=== PATIENT | male | born 1940 | race Hispanic/Latino ===

== ENCOUNTER 2024-02-17 02:49 | Emergency (ER) | payer SELFPAY ==
--- NOTE | 2024-02-17 06:04 | EDPHYS ---
Physician Documentation [facility] – [place], [place] Name: Errol Salazar Age: 83 yrs Sex: Male : 1940 Arrival Date: 02/17/2024 Time: 02:49 Bed 19 Private MD: ED Physician Alfredo De La Cruz HPI: 02/16 02:54 This 83 yrs old Male presents to ER via Unassigned with complaints of urinary sp4 retention . 23:43 Very pleasant 83-year-old male presents with urinary retention. Also complains of sp4 constipation.. Historical: - Allergies: 03:06 No Known Allergies; rg5 - PMHx: 03:06 Diabetes mellitus; Hypertensive disorder; prostate cancer; rg5 - Immunization history:: Adult Immunizations up to date. - Infectious Disease History:: Denies. - Social history:: Smoking status: Patient denies any tobacco usage or history of. - Family history:: not pertinent. ROS: 23:43 Constitutional: Negative for fever, chills, and weight loss, positive for urinary sp4 retention positive for constipation 23:43 All other systems are negative, Exam: 23:43 Constitutional: This is a well developed, well nourished patient who is awake, alert, sp4 and in no acute distress. Head/Face: Normocephalic, atraumatic. Eyes: Pupils equal round and reactive to light, extra-ocular motions intact. Lids and lashes normal. Conjunctiva and sclera are not injected. Cornea within normal limits. Periorbital areas with no swelling, redness, or edema. ENT: Nares patent. No nasal discharge, no septal abnormalities noted. Tympanic membranes are normal and external auditory canals are clear. Oropharynx with no redness, swelling, or masses, exudates, or evidence of obstruction, uvula midline. Mucous membranes moist. Neck: Trachea midline, no thyromegaly or masses palpated, and no cervical lymphadenopathy. Supple, full range of motion without nuchal rigidity, or vertebral point tenderness. Chest/axilla: Normal chest wall appearance and motion. Nontender with no deformity. No lesions are appreciated. Cardiovascular: Regular rate and rhythm with a normal S1 and S2. No gallops, murmurs, or rubs. Normal PMI, no JVD. No pulse deficits. Respiratory: Lungs have equal breath sounds bilaterally, clear to auscultation and percussion. No rales, rhonchi or wheezes noted. No increased work of breathing, no retractions or nasal flaring. Abdomen/GI: Soft, with normal bowel sounds. No distension or tympany. No guarding or rebound. Positive for large size midline hernia without signs of incarceration Back: No spinal tenderness. No costovertebral tenderness. Male : Normal genitalia with no discharge or lesions. Skin: Warm, dry with normal turgor. Normal color with no rashes, no lesions, and no evidence of cellulitis. MS/ Extremity: Pulses equal, no cyanosis. Neurovascular intact. Full, normal range of motion. Neuro: Awake and alert, GCS 15, oriented to person, place, time, and situation. Cranial nerves II-XII grossly intact. Motor strength 5/5 in all extremities. Sensory grossly intact. Psych: Awake, alert, with orientation to person, place and time. 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 No sign of fecal sp4 impaction overall normal rectal exam. No mass, Vital Signs: 02:55 BP 177 / 71; Pulse 68; Resp 18; Temp 98.1(O); Pulse Ox 99% on R/A; Weight 87.09 kg; rg5 Height 5 ft. 1 in. ; Pain 9/10; 03:13 BP 177 / 71; Pulse 68; Resp 18; Pulse Ox 99% on R/A; rg5 04:15 BP 125 / 62; Pulse 69; Resp 17; Pulse Ox 99% on R/A; rg5 05:14 BP 133 / 58; Pulse 66; Resp 20; Pulse Ox 95% ; kj2 06:12 BP 140 / 67; Pulse 68; Resp 18; Temp 98; Pulse Ox 100% ; kj2 02:55 Body Mass Index 36.28 (87.09 kg, 154.94 cm) rg5 02:55 Pain Scale: Adult rg5 [place] Coma Score: 23:43 Eye Response: spontaneous(4). Motor Response: obeys commands(6). Verbal Response: sp4 oriented(5). Total: 15. MDM: 03:15 Medical Screening Exam initiated sp4 06:02 ED course: EXAM: CTAbdomen and Pelvis Without Intravenous Contrast CLINICAL HISTORY: sp4 The patient is 83 years old and is Male; CONSTIPATION TECHNIQUE: Axial computed tomography images of the abdomen and pelvis without intravenous contrast. Sagittal and coronal reformatted images were created and reviewed. This CT exam was performed using one or more of the following dose reduction techniques: automated exposure control, adjustment of the mA and/or kV according to patient size, and/or use of iterative reconstruction technique. COMPARISON: No relevant prior studies available. FINDINGS: Artifacts: Mild motion artifact. Lung bases: Unremarkable. No mass. No consolidation. ABDOMEN: Liver: Unremarkable. Gallbladder and bile ducts: Unremarkable. No calcified stones. No ductal dilation. Pancreas: Unremarkable. No ductal dilation. Spleen: Unremarkable. No splenomegaly. Adrenals: Unremarkable. No mass. Kidneys and ureters: Unremarkable. No obstructing stones. No hydronephrosis. Stomach and bowel: Normal amount of retained stool. No bowel dilatation or obstruction. No bowel wall thickening. No findings to suggest colitis. Stomach is unremarkable. Broad ventral abdominal wall hernia containing fat and multiple small bowel loops. No evidence of edema/incarceration. PELVIS: Appendix: The visualized appendix is normal. No pericecal inflammation to suggest acute appendicitis. Bladder: Avitia catheter in the bladder. Pericystic fat stranding raises suspicion for cystitis/UTI. Small bladder calculi. Reproductive: Enlarged prostate gland. ABDOMEN and PELVIS: Intraperitoneal space: Unremarkable. No free air. No significant fluid collection. Bones/joints: Degenerative facet arthropathy in the lower lumbar spine. No acute fracture. Moderate to marked central canal stenosis at L3-4. No dislocation. Soft tissues: See above. Vasculature: Unremarkable. No abdominal aortic aneurysm. Lymph nodes: No pathologically enlarged lymph nodes. IMPRESSION: 1. Mild motion artifact. Normal amount of retained stool. 2. Avitia catheter in the bladder. Pericystic fat stranding raises suspicion for cystitis/UTI. 3. Small bladder calculi. 4. Enlarged prostate gland. 5. Moderate to marked central canal stenosis at L3-4. 6. Additional non-emergent findings as above.. 06:02 Differential diagnosis: nonspecific abdominal pain, urinary retention, Avitia catheter sp4 problem, prostatitis, urethritis. Data reviewed: vital signs, nurses notes, radiologic studies, CT scan. 23:47 Consideration of Admission/Observation Escalation of care including sp4 admission/observation considered. ED course: Avitia catheter was placed by RN. Patient feels much better. Rectal exam does not reveal fecal impaction. Patient stable for discharge home.. 02/16 03:15 Order name: CT Abd/Pelvis - Without Contrast sp4 02/16 03:15 Order name: Avitia; Complete Time: 03:29 sp4 02/16 06:05 Order name: Leg Bag sp4 Administered Medications: No medications were administered Disposition Summary: 02/17/24 06:03 Discharge Ordered Notes: Location: Home sp4 Problem: new sp4 Symptoms: have improved sp4 Condition: Stable sp4 Diagnosis - Acute urinary retention, Acute cystitis sp4 Followup: sp4 - With: Osmani Garcia MD - When: 10 - 14 days - Reason: Recheck today's complaints Discharge Instructions: - Discharge Summary Sheet sp4 - Indwelling Urinary Catheter Care, Adult, [id number] sp4 Forms: - Patient Portal Instructions sp4 Prescriptions: - tamsulosin 0.4 mg Oral capsule - take 1 capsule ORAL route daily for 30 days; 30 capsule; Refills: 0, Product sp4 Selection Permitted - Cephalexin 500 mg Oral Capsule - take 1 capsule ORAL route every 12 hours for 10 days; 20 capsule; Refills: 0, sp4 Product Selection Permitted Signatures: Dispatcher [employer] Alfredo Bowling MD MD sp4 Taj Abbasi RN RN rg5
--- NOTE | 2024-02-17 06:04 | ER ---
Nurse's Notes [facility] [place] Name: Errol Salazar Age: 83 yrs Sex: Male : 1940 Arrival Date: 02/17/2024 Time: 02:49 Bed 19 Private MD: Diagnosis: Acute urinary retention, Acute cystitis Presentation: 02/16 02:55 Chief complaint: EMS states: patient was unable to urinate for 2 hrs now, complains of rg5 pain in the belly. he had a HX of prostate CA \T\ abdominal hernia. 02:55 Coronavirus screen: Client denies travel out of the [place] in the last 14 days. Ebola rg5 Screen: Patient negative for fever greater than or equal to 101.5 degrees Fahrenheit, and additional compatible Ebola Virus Disease symptoms Patient denies exposure to infectious person. Patient denies travel to an Ebola-affected area in the 21 days before illness onset. No symptoms or risks identified at this time. Initial Sepsis Screen: Does the patient meet any 2 criteria? No. Patient's initial sepsis screen is negative. Does the patient have a suspected source of infection? No. Patient's initial sepsis screen is negative. Risk Assessment: Do you want to hurt yourself or someone else? Patient reports no desire to harm self or others. Onset of symptoms was February 17, 2024. 02:55 Method Of Arrival: EMS: [facility] rg5 02:55 Acuity: JOHN 3 rg5 Triage Assessment: 03:06 General: Appears in no apparent distress. Behavior is calm, cooperative. Pain: rg5 Complains of pain in abdomen Pain currently is 9 out of 10 on a pain scale. Quality of pain is described as aching. : Reports inability to void. Historical: - Allergies: 03:06 No Known Allergies; rg5 - PMHx: 03:06 Diabetes mellitus; Hypertensive disorder; prostate cancer; rg5 - Immunization history:: Adult Immunizations up to date. - Infectious Disease History:: Denies. - Social history:: Smoking status: Patient denies any tobacco usage or history of. - Family history:: not pertinent. Screenin:55 [facility] ED Fall Risk Assessment (Adult) History of falling in the last 3 months, rg5 including since admission No falls in past 3 months (0 pts) Confusion or Disorientation No (0 pts) Intoxicated or Sedated No (0 pts) Impaired Gait Yes (1 pt) Mobility Assist Device Used Yes (1 pt) Altered Elimination Yes (1 pt) Score/Fall Risk Level 3 or more points = High Risk Oriented to surroundings, Maintained a safe environment, Used ambulatory aids as needed (educated on \T\ assisted with). 02:55 Abuse screen: Denies threats or abuse. Nutritional screening: No deficits noted. rg5 Tuberculosis screening: No symptoms or risk factors identified. Assessment: 03:15 Reassessment: see triage assessment. rg5 04:16 Reassessment: Patient and/or family updated on plan of care and expected duration. Pain rg5 level reassessed. Patient is alert, oriented x 3, equal unlabored respirations, skin warm/dry/pink. Patient states symptoms have improved. 05:14 Reassessment: Patient appears in no apparent distress at this time. Patient and/or kj2 family updated on plan of care and expected duration. Pain level reassessed. Patient is alert, oriented x 3, equal unlabored respirations, skin warm/dry/pink. 06:12 Reassessment: Patient appears in no apparent distress at this time. Patient and/or kj2 family updated on plan of care and expected duration. Pain level reassessed. Patient is alert, oriented x 3, equal unlabored respirations, skin warm/dry/pink. Vital Signs: 02:55 BP 177 / 71; Pulse 68; Resp 18; Temp 98.1(O); Pulse Ox 99% on R/A; Weight 87.09 kg; rg5 Height 5 ft. 1 in. ; Pain 9/10; 03:13 BP 177 / 71; Pulse 68; Resp 18; Pulse Ox 99% on R/A; rg5 04:15 BP 125 / 62; Pulse 69; Resp 17; Pulse Ox 99% on R/A; rg5 05:14 BP 133 / 58; Pulse 66; Resp 20; Pulse Ox 95% ; kj2 06:12 BP 140 / 67; Pulse 68; Resp 18; Temp 98; Pulse Ox 100% ; kj2 02:55 Body Mass Index 36.28 (87.09 kg, 154.94 cm) rg5 02:55 Pain Scale: Adult rg5 [place] Coma Score: 23:43 Eye Response: spontaneous(4). Motor Response: obeys commands(6). Verbal Response: sp4 oriented(5). Total: 15. ED Course: 02:53 Patient arrived in ED. rv1 02:53 Alfredo De La Cruz MD is Attending Physician. sp4 02:55 Patient has correct armband on for positive identification. Placed in gown. Side rails rg5 up X 1. Door closed. Noise minimized. Warm blanket given. Verbal reassurance given. 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 rg5 03:02 Taj Abbasi, RN is Primary Nurse. rg5 03:06 Triage completed. rg5 03:06 Arm band placed on right wrist. rg5 03:29 Avitia cath inserted, using sterile technique, 16 Fr., by ok, balloon inflated, to rg5 gravity drainage, urine specimen collected. other 750 urine output. 03:49 CT Abd/Pelvis - Without Contrast In Process Unspecified. EDMS 05:00 Provided Education on: CALL LIGHT. kj2 06:03 Osmani Garcia MD is Referral Physician. sp4 06:12 Patient did not have IV access during this emergency room visit. kj2 Administered Medications: No medications were administered Medication: 02:55 VIS not applicable for this client. rg5 Outcome: 05:00 Discharged to home ambulatory, kj2 05:00 Condition: stable 05:00 Discharge instructions given to patient, Instructed on discharge instructions, follow up and referral plans. Demonstrated understanding of instructions, follow-up care, 06:03 Discharge ordered by . sp4 06:37 Patient left the ED. kj2 Signatures: Dispatcher [employer] EDGA Bebe Rodrigues rv1 Alfredo De La Cruz MD MD sp4 Taj Abbasi, RN RN rg5 Neha Berry RN RN kj2
--- NOTE | 2024-02-17 06:05 | RAD REPORT ---
EXAM: CT Abdomen and Pelvis Without Intravenous Contrast CLINICAL HISTORY: The patient is 83 years old and is Male; CONSTIPATION TECHNIQUE: Axial computed tomography images of the abdomen and pelvis without intravenous contrast. Sagittal and coronal reformatted images were created and reviewed. This CT exam was performed using one or more of the following dose reduction techniques: automated exposure control, adjustmen t of the mA and/or kV according to patient size, and/or use of iterative reconstruction technique. COMPARISON: No relevant prior studies available. FINDINGS: Artifacts: Mild motion artifact. Lung bases: Unremarkable. No mass. No consolidation. ABDOMEN: Liver: Unremarkable. Gallbladder and bile ducts: Unremarkable. No calcified stones. No ductal dilation. Pancreas: Unremarkable. No ductal dilation. Spleen: Unremarkable. No splenomegaly. Adrenals: Unremarkable. No mass. Kidneys and ureters: Unremarkable. No obstructing stones. No hydronephrosis. Stomach and bowel: Normal amount of retained stool. No bowel dilatation or obstruction. No bowel wall thickening. No findings to suggest colitis. Stomach is unremarkable. Broad ventral abdominal wall hernia containing fat and multiple small bowel loops. No evidenc e of edema/incarceration. PELVIS: Appendix: The visualized appendix is normal. No pericecal inflammation to suggest acute appendici tis. Bladder: Avitia catheter in the bladder. Pericystic fat stranding raises suspicion for cystitis/UT I. Small bladder calculi. Reproductive: Enlarged prostate gland. ABDOMEN and PELVIS: Intraperitoneal space: Unremarkable. No free air. No significant fluid collection. Bones/joints: Degenerative facet arthropathy in the lower lumbar spine. No acute fracture. Modera te to marked central canal stenosis at L3-4. No dislocation. Soft tissues: See above. Vasculature: Unremarkable. No abdominal aortic aneurysm. Lymph nodes: No pathologically enlarged lymph nodes. IMPRESSION: 1. Mild motion artifact. Normal amount of retained stool. 2. Avitia catheter in the bladder. Pericystic fat stranding raises suspicion for cystitis/UTI. 3. Small bladder calculi. 4. Enlarged prostate gland. 5. Moderate to marked central canal stenosis at L3-4. 6. Additional non-emergent findings as above. Electronically signed by: Negar Alves MD 02/17/2024 05:49 AM SEISMOGRAPHER ND Due to temporary technical issues with the PACS/[employer] reporting system, reports are being vikas d by the in-house radiologist without review as a courtesy to ensure prompt reporting the interpreting radiologist is fully responsible for the content of the report. Transcribed Date/Time: 02/17/2024 6:04 AM
[2024-02-17 06:47] VITALS: BP 140/67; TEMP 98; O2SAT 100
== END 2024-02-17 06:37 | disposition home or self-care (01) ==
LOC: ER 02:49
PROC: 0T9B70Z Drainage of Bladder with Drainage Device, Via Natural or Artificial Opening (ICD-10-PCS; principal; 2024-02-17)
DX: N30.00 Acute cystitis without hematuria (principal); R33.9 Retention of urine, unspecified; K59.00 Constipation, unspecified; E11.9 Type 2 diabetes mellitus without complications; I10 Essential (primary) hypertension; Z85.46 Personal history of malignant neoplasm of prostate
CPT/HCPCS: 51702; 74176; 99284